=== PATIENT | male | born 1995 | race Caucasian/White ===

== ENCOUNTER 2019-04-21 12:43 | Emergency (ER) | payer BC, OTHER ==
[2019-04-21 12:51] VITALS: BP 137/89; PULSE 67
[2019-04-21] MEDS ORDERED: Proparacaine 0.5% Ophth Soln 15 ML Bottle EYEBOTH ONE (12:54)
[2019-04-21] MEDS ORDERED: Tetracaine HCl/PF 0.5% 4 ML Bottle EYERT ONE (13:01)
[2019-04-21] MEDS ORDERED: Tetracaine HCl/PF 0.5% 4 ML Bottle ONE (13:06)
--- NOTE | 2019-04-21 13:15 | EDM.PDOC ---
ED HPI GENERAL MEDICAL PROBLEM - General Chief Complaint: Eye Problems Stated Complaint: RIGHT EYE Time Seen by Provider: 04/21/19 12:54 Source of Information: Reports: Patient History Limitations: Reports: No Limitations - History of Present Illness INITIAL COMMENTS - FREE TEXT/NARRATIVE: HISTORY AND PHYSICAL: History of present illness: Patient is a 23-year-old male presents to the ED with complaint of right eye pain. He states he felt like there was something in his eye a few days ago, took out his contacts and cleaned them and put them back in. He states he still felt like there was something there so he got a new pair of contacts. He states it is not getting any better. He is currently wearing his glasses. He denies injury or trauma to the eye. Denies significant past medical history. Review of systems: As per history of present illness and below otherwise all systems reviewed and negative. Past medical history: As per history of present illness and as reviewed below otherwise noncontributory. Surgical history: As per history of present illness and as reviewed below otherwise noncontributory. Social history: No reported history of drug or alcohol abuse. Family history: As per history of present illness and as reviewed below otherwise noncontributory. Physical exam: General: Patient sitting comfortably in no acute distress and nontoxic appearing HEENT: Right eye is injected. There is a corneal abrasion noted in the 12 o' clock position with woodslamp exam/fluorescein stain. No FB on lid eversion. Atraumatic, normocephalic, pupils reactive, negative for conjunctival pallor or scleral icterus, mucous membranes moist, throat clear, neck supple, nontender, trachea midline. No meningeal signs. Lungs: Clear to auscultation, breath sounds equal bilaterally, chest nontender. Heart: S1S2, regular, negative for clicks, rubs, or overt murmur. Abdomen: Soft, nondistended, nontender. Negative for masses or hepatosplenomegaly. Negative for costovertebral tenderness. No rigidity, rebound , guarding. Pelvis: Stable nontender. Genitourinary: Deferred. Rectal: Deferred. Extremities: Atraumatic, negative for cords or calf pain. Neurovascular unremarkable. Neuro: Awake, alert, oriented. Cranial nerves II through XII unremarkable. Cerebellum unremarkable. Motor and sensory unremarkable throughout. Exam nonfocal. Notes: Diagnostics: Woodslamp exam Therapeutics: Tetracaine ophthalmic Prescriptions: Polytrim ophthalmic Impression: Corneal abrasion Definitive disposition and diagnosis as appropriate pending reevaluation and review of above. Right Eye Pain Score (Numeric/FACES): 8 - Related Data Allergies Allergy/AdvReac Type Severity Reaction Status Date / Time No Known Allergies Allergy Verified 04/21/19 12:45 Home Meds: Home Meds Polymyxin B/Trimethoprim [PolyTrim Ophth Soln] 1 drop OP TID #1 bottle 04/21/19 [Rx] Past Medical History - Past Health History Medical/Surgical History: Denies Medical/Surgical History ED ROS GENERAL - Review of Systems Review Of Systems: Comprehensive ROS is negative, except as noted in HPI. ED EXAM GENERAL W FULL EYE - Physical Exam Exam: See Below (see dictation) Course - Vital Signs Last Recorded V/S: Last Vital Signs Temp 97.5 F 04/21/19 12:46 Pulse 67 04/21/19 12:46 Resp 20 04/21/19 12:46 BP 137/89 04/21/19 12:46 Pulse Ox 100 04/21/19 12:46 Departure - Departure Time of Disposition: 13:19 Disposition: Home, Self-Care 01 Condition: Good Clinical Impression: Corneal abrasion, right - Discharge Information Prescriptions: Polymyxin B/Trimethoprim [PolyTrim Ophth Soln] 1 drop OP TID #1 bottle Additional Instructions: The following information is given to patients seen in the emergency department who are being discharged to home. This information is to outline your options for follow-up care. We provide all patients seen in our emergency department with a follow-up referral. The need for follow-up, as well as the timing and circumstances, are variable depending upon the specifics of your emergency department visit. If you don't have a primary care physician on staff, we will provide you with a referral. We always advise you to contact your personal physician following an emergency department visit to inform them of the circumstance of the visit and for follow-up with them and/or the need for any referrals to a consulting specialist. The emergency department will also refer you to a specialist when appropriate. This referral assures that you have the opportunity for follow-up care with a specialist. All of these measure are taken in an effort to provide you with optimal care, which includes your follow-up. Under all circumstances we always encourage you to contact your private physician who remains a resource for coordinating your care. When calling for follow-up care, please make the office aware that this follow-up is from your recent emergency room visit. If for any reason you are refused follow-up, please contact the [facility] Emergency Department at and asked to speak to the emergency department charge nurse. [facility] [address] [place] [id number] [facility] [address] [place] [address] Use drops as instructed Do not wear contacts until resolved Follow up with ophthalmology Return to ED as needed as discussed Sepsis Event Note - Evaluation Sepsis Screening Result: No Definite Risk - Focused Exam Vital Signs: Vital Signs Temp Pulse Resp BP Pulse Ox 04/21/19 12:46 97.5 F 67 20 137/89 100 Date Exam was Performed: 04/21/19 Time Exam was Performed: 12:49
== END 2019-04-21 13:30 | disposition home or self-care (01) ==
LOC: MW.ED 12:43
DX: S05.01XA Injury of conjunctiva and corneal abrasion without foreign body, right eye, initial encounter (principal); X58.XXXA Exposure to other specified factors, initial encounter
CPT/HCPCS: 99282; 99283